=== PATIENT | male | born 1970 | race Native Hawaiian/Other Pacific Islander ===

== ENCOUNTER 2018-08-31 20:17 | Emergency (ER) | payer OTHER ==
[~2018-08-31] VITALS: Ht 170.2 cm; Wt 117.9 kg
[2018-08-31] MEDS ORDERED: LEVO0.0723 PO (20:47)
[2018-08-31] MEDS ORDERED: LISI10TA11 PO (20:48)
[2018-08-31] MEDS ORDERED: PRAVACHOL20 MG PO (20:48)
[2018-08-31] MEDS ORDERED: CITALOPRAM20 M1 PO (20:49)
[2018-08-31 22:50] VITALS: BP 145/85; TEMP 98.1
== END 2018-08-31 22:50 | disposition home or self-care (01) ==
LOC: ED 20:17
PROC: 08C8XZZ Extirpation of Matter from Right Cornea, External Approach (ICD-10-PCS; principal; 2018-08-31)
DX: T15.01XA Foreign body in cornea, right eye, initial encounter (principal)
CPT/HCPCS: 99283